=== PATIENT | female | born 1965 | race Caucasian/White ===

== ENCOUNTER 2024-05-06 13:28 | Emergency (ER) | payer SELFPAY ==
[2024-05-06] MEDS ORDERED: Furosemide 40 MG (4 mL) VIAL ONE ×2 (14:28→19:30)
[2024-05-06 15:11] LABS: Hematocrit 55.6 % (36.0-47.0); Hemoglobin 16.1 g/dL (12.0-16.0); Mean Corpuscular HGB CONC 28.9 g/dL (32.0-36.0); Mean Corpuscular Hemoglobin 27.9 pg (27.0-31.0); Mean Corpuscular Volume 96.6 fl (78.0-98.0); Mean Platelet Volume 9.8 fL (7.4-10.4); Platelet Count 175 10x3/uL (130-400); RBC Distribution Width 17.5 % (11.5-14.5); Red Blood Cell (RBC) Count 5.76 mill/uL (4.20-5.40); White Blood Cell (WBC) Count 7.4 10x3/uL (4.8-10.8)
[2024-05-06 15:17] LABS: MDiff Complete? YES; Manual Diff?? YES
[2024-05-06 15:20] LABS: ALT (SGPT) 8 U/L (Less than 34); AST (SGOT) 22 U/L (11-34); Alkaline Phosphatase 132 U/L (40-110); Anion Gap 20 mmol/L (10-20); BUN (Urea Nitrogen) 22 mg/dL (9.8-20.1); Bilirubin, Total 1.7 mg/dL (0.3-1.2); Calc. Creatinine Clearance 0 mL/min (70-130); Calcium 9.4 mg/dL (7.8-10.44); Carbon Dioxide 25 mmol/L (22-29); Chloride 103 mmol/L (98-107); Estimated GFR 38; Globulin 3.2 g/dL (2.4-3.5); Glucose 109 mg/dL (70-105); Magnesium 1.8 mg/dL (1.6-2.6); Protein, Total 7.2 g/dL (6.0-8.3); Sodium 144 mmol/L (136-145)
[2024-05-06 15:21] LABS: Base Excess-Venous 8.7 mmol/L (-2.0 to 3.0); Bicarbonate (HCO3v) 37.4 mmol/L (22.0-28.0); CO2 Tension (PvCO2) 62.2 mmHg (42.0-51.0); Calcium, Ionized 1.15 mmol/L (1.15-1.33); Chloride 105 mmol/L (98-107); Hemoglobin - Calc 20.3 g/dL (12.0-16.0); Potassium 4.2 mmol/L (3.5-5.1); Sodium 149 mmol/L (138-145); T. Carbon Dioxide 39.4 mmol/L (22.0-28.0); vO2 Saturation-calc 99.3 % (60.0-85.0)
[2024-05-06 15:23] LABS: Eosinophils 4 % (0-10); Lymphocytes 2 % (21-51); Monocytes 2 % (0-10); Neutrophil 82 % (42-75); Reactive Lymphocytes 10 % (0-10)
[2024-05-06 15:24] LABS: Anisocytosis SLIGHT = 6-15 cells (100X) (0-5/hpf); Polychromasia SLIGHT = 2-3 cells (100X) (0-2/hpf)
[2024-05-06 15:25] LABS: Platelet Adequacy Comment Appears Adequate
[2024-05-06] MEDS ORDERED: hydrALAZINE 20 MG/ML VIAL ONE ×2 (17:23→19:30)
[2024-05-06 18:49] LABS: Bilirubin Negative (Negative); Blood, Urine Negative (Negative); Glucose, Urine (Dipstick) Negative (Negative); Ketone, Urine Negative (Negative); Leukocyte Negative (Negative); Nitrite Negative (Negative); Protein, Urine (Dipstick) Negative (Neg-Trace); Urobilinogen 0.2 mg/dL (Less than 2)
[2024-05-06 18:53] LABS: Clarity Clear (Clear)
[2024-05-06 18:57] LABS: Bacteria/HPF Rare-Few HPF (None Seen); CAUTI Indications for Culture Pelvic or flank pain; RBC/HPF None Seen HPF (0-3); Urine Culture Reflex No No; WBC/HPF 0-3 HPF (0-3)
[2024-05-06] MEDS ORDERED: Nystatin Cream 15 GM TUBE TOP SCH (22:15)
[2024-05-07] MEDS ORDERED: Nystatin Cream 15 GM TUBE TOP SCH (09:00)
== END 2024-05-06 22:24 | disposition short-term general hospital (02) ==
LOC: MADERS 13:28
DX: I50.9 Heart failure, unspecified (principal); I16.1 Hypertensive emergency; L30.4 Erythema intertrigo; E66.2 Morbid (severe) obesity with alveolar hypoventilation; I10 Essential (primary) hypertension
CPT/HCPCS: 71046; 80053; 81001; 82330; 82435; 82803; 83735; 83880; 84132; 84295; 84443; 84484; 85014; 85025; 93005; 94760; 96374; 96375; 96376; J0360; J1940